=== PATIENT | male | born 2005 | race Hispanic/Latino ===

== ENCOUNTER 2025-01-21 03:00 | Emergency (ER) | payer SELFPAY ==
[~2025-01-21] VITALS: Ht 165.1 cm; Wt 68.0 kg
--- NOTE | 2025-01-21 03:14 | NUR ---
UNKNOWN LOC, NO THINNERS
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
[2025-01-21 03:25] LABS: IMMATURE GRANULOCYTE ABSOLUTE 0.07 K/uL (0-1); NUCLEATED RED BLOOD CELLS 0.0 % (0.0-0.19); PLATELET COUNT (AUTO) 296 K/uL (130-400); RED BLOOD CELL COUNT(AUTO) 4.67 MIL/uL (4.50-6.20); RED CELL DISTRIBUTION WIDTH 11.8 % (11.0-15.5); WHITE BLOOD COUNT (AUTO) 10.1 K/uL (4.8-10.8)
[2025-01-21] MEDS: 0.9%NACL 1000ML 1,000 ML IV ONE (03:27)
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
[2025-01-21] MEDS: ZOSYN 3.375GM +NS 50ML IV ONE (03:33)
[2025-01-21 03:34] LABS: ALCOHOL, BLOOD 155.0 mg/dL (0-10); CREATININE 0.8 mg/dL (0.5-1.3); GLOMERULAR FILTR. RATE CALC 131.0 mL/min (>90); GLUCOSE,RANDOM 163.0 mg/dL (70-105); SODIUM SERUM 143.0 mmol/L (136-145); UREA NITROGEN, BLOOD 12.0 mg/dL (7-18)
[2025-01-21] MEDS: VANCOMYCIN KIT 1 GM/250 ML IV.KIT IV ONE (03:34)
--- NOTE | 2025-01-21 03:34 | HMCIMG ---
EXAM: CR Chest, 1 view CLINICAL HISTORY: Trauma. COMPARISON: None provided. FINDINGS: The lungs show no infiltrates or other acute findings. No pleural effusion or pneumothorax. The cardiomediastinal silhouette is within normal limits. No acute osseous abnormality. IMPRESSION: No acute cardiopulmonary process is evident. /[place]
--- NOTE | 2025-01-21 03:54 | HMCIMG ---
EXAM: Non-contrast CT examination of the Brain CLINICAL HISTORY: Trauma. TECHNIQUE: Thin collimated axial CT images of the brain were obtained, with sagittal and coronal reformatted images also submitted. A CT scan is done according to ALARA (As Low as Reasonably Achievable). CONTRAST USED: None. COMPARISON: None provided. FINDINGS: Severe acute comminuted displaced orbital facial fractures on the left side, involving the floor, medial wall, and lateral wall of the left orbit, anterior wall, medial wall, and posterior lateral wall of the left maxillary sinus, right and left nasal bones, anterior superior bony nasal septum, and left zygomatic arch with severe soft tissue emphysema and hematoma in the left retro-orbital fat, completely protruded left eye globe with a possibility of transection of the left optic nerve, the left eye globe lenses present posteriorly, hemorrhagic contents within the left maxillary and ethmoid sinuses. Diffuse soft tissue edema, hematoma, and emphysema around the left foundation drill operator space and orbital facial region. An ill-defined hemorrhagic contusion in the left basi-frontal region (series 5, image 11), the hemorrhagic focus measures up to 4 mm with mild perilesional edema. No acute cortical infarction, mass, or mass effect is evident. No hydrocephalus or abnormal extra-axial fluid collections. The posterior fossa is unremarkable. IMPRESSION: Severe acute comminuted displaced orbital facial fractures on the left side, involving the floor, medial wall, and lateral wall of the left orbit, anterior wall, medial wall, and posterior lateral wall of the left maxillary sinus, right and left nasal bones, anterior superior bony nasal septum, and left zygomatic arch with severe soft tissue emphysema and hematoma in the left retro-orbital fat, completely protruded left eye globe with a possibility of transection of the left optic nerve, the left eye globe lenses present posteriorly, hemorrhagic contents within the left maxillary and ethmoid sinuses. Diffuse soft tissue edema, hematoma, and emphysema around the left foundation drill operator space and orbital facial region. An ill-defined hemorrhagic contusion in the left basi-frontal region (series 5, image 11), the hemorrhagic focus measures up to 4 mm with mild perilesional edema. [facility]
--- NOTE | 2025-01-21 03:56 | HMCIMG ---
EXAM: CT Cervical Spine Without IV Contrast CLINICAL HISTORY: Trauma. TECHNIQUE: Thin collimated axial CT images of the cervical spine were obtained with sagittal and coronal reformatted images also submitted. CT scan done according to ALARA (As Low As Reasonably Achievable). CONTRAST: None. COMPARISON: None provided. FINDINGS: No acute fracture. Mild straightening of the expected cervical lordosis with mild dextrocurvature reflects paraspinal muscle spasm. Normal vertebral body and disc heights. Normal bone density. The surrounding soft tissues are unremarkable. No disc bulge or herniation. No neural foraminal, lateral recess or spinal canal stenosis. IMPRESSIONS: No acute cervical bone fracture. /[place]
[2025-01-21 04:00] VITALS: PULSE 86; RESP 22; O2SAT 98
--- NOTE | 2025-01-21 04:02 | HMCIMG ---
EXAM: CT Maxillofacial Bones without IV Contrast. CLINICAL HISTORY: Trauma. TECHNIQUE: Thin collimated axial CT images of the maxillofacial bones were obtained with sagittal and coronal reformatted images also submitted. CT scan is done according to ALARA (As Low As Reasonably Achievable). CONTRAST: None. COMPARISON: None provided. FINDINGS: Severe acute comminuted displaced orbital facial fractures on the left side, involving the floor, medial wall, and lateral wall of the left orbit, anterior wall, medial wall, and posterior lateral wall of the left maxillary sinus, right and left nasal bones, anterior superior bony nasal septum, left inferior nasal turbinate, left frontal zygomatic bones, and left zygomatic arch with severe soft tissue emphysema and hematoma in the left retro-orbital fat, completely protruded left eye globe with a possibility of transection of the left optic nerve, the left eye globe lenses present posteriorly, hemorrhagic contents within the left maxillary and ethmoid sinuses. Diffuse soft tissue edema, hematoma, and emphysema around the left bucket chucker space and orbital facial region. Small fracture defect in the lateral aspect of the left frontal sinus. Mild mucosal thickening within the left frontal and right maxillary sinuses. Intact mandible and temporomandibular joints. The right orbit and orbital contents are within normal limits. IMPRESSION: Severe acute comminuted displaced orbital facial fractures on the left side, involving the floor, medial wall, and lateral wall of the left orbit, anterior wall, medial wall, and posterior lateral wall of the left maxillary sinus, right and left nasal bones, anterior superior bony nasal septum, left inferior nasal turbinate, left frontal zygomatic bones, and left zygomatic arch with severe soft tissue emphysema and hematoma in the left retro-orbital fat, completely protruded left eye globe with a possibility of transection of the left optic nerve, the left eye globe lenses present posteriorly, hemorrhagic contents within the left maxillary and ethmoid sinuses. Diffuse soft tissue edema, hematoma, and emphysema around the left bucket chucker space and orbital facial region. /[place]
--- NOTE | 2025-01-21 04:14 | NUR ---
[facility] [place] AT [facility]
--- NOTE | 2025-01-21 04:25 | NUR ---
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
--- NOTE | 2025-01-21 04:37 | NUR ---
TRANSFER PT. ACCEPTED BY MARILEE LOYA MD FOR TRANSFER TO [facility]. REPORT: [phone]
--- NOTE | 2025-01-21 04:43 | NUR ---
[facility] CALLED FOR TRANSPORT OF EMERGENT, TRAUMA OPHTHALMOLOGY PATIENT.
[2025-01-21 05:03] VITALS: BP 104/57; PULSE 66; RESP 16; TEMP 98.7; O2SAT 100
== END 2025-01-21 05:17 | disposition short-term general hospital (02) ==
LOC: EDH 03:00
DX: S02.32XA Fracture of orbital floor, left side, initial encounter for closed fracture (principal); S02.842A Fracture of lateral orbital wall, left side, initial encounter for closed fracture; S02.832A Fracture of medial orbital wall, left side, initial encounter for closed fracture; S02.19XA Other fracture of base of skull, initial encounter for closed fracture; S02.40DA Maxillary fracture, left side, initial encounter for closed fracture; S02.2XXA Fracture of nasal bones, initial encounter for closed fracture; S02.40FA Zygomatic fracture, left side, initial encounter for closed fracture; Y04.0XXA Assault by unarmed brawl or fight, initial encounter; Y93.89 Activity, other specified; Y92.89 Other specified places as the place of occurrence of the external cause; Y99.8 Other external cause status
CPT/HCPCS: 99291; 70450; 96365; 96375; 96366; 80048; 85025; 83605; 82010; 36415; 90714; 71045; 72125; 70486; 96368; 90471; J1100; J2405; J2543; J3373